=== PATIENT | female | born 1965 | race Caucasian/White ===

== ENCOUNTER 2022-01-10 04:04 | Observation (INO) | payer MEDICARE, MEDICAID ==
[2022-01-10] MEDS ORDERED: Albuterol/Ipratropium 3.0-0.5 MG/3 ML Neb Soln NEB ONE (04:06)
[2022-01-10] MEDS ORDERED: Acetaminophen 325 MG Tab PO ONE (04:08)
[2022-01-10] MEDS ORDERED: Sodium Chloride 0.9% 10 ML Syringe FLUSH PRN (04:18)
[2022-01-10] MEDS ORDERED: Furosemide 40 MG/4 ML VIAL IVPUSH ONE (04:39)
[2022-01-10 04:58] LABS: CHLORIDE,CL 101 mEq/L (98-106); ESTIMATED GFR 58 mL/min (>=60); SODIUM,NA 143 mEq/L (136-145)
[2022-01-10] MEDS ORDERED: Heparin Sodium 5,000 Units/ML Vial IVPUSH ONE (05:02)
[2022-01-10] MEDS ORDERED: Aspirin 81 MG Tab.Chew PO ONE (05:02)
[2022-01-10 05:08] LABS: CORONAVIRUS COVID-19 NAA NEGATIVE (NEGATIVE)
[2022-01-10] MEDS ORDERED: cefTRIAXone 2 GM Vial IVPUSH ONE (05:44)
[2022-01-10] MEDS ORDERED: Heparin Sodium 5,000 Units/ML Vial SUBCUT ONE (05:52)
[2022-01-10] MEDS ORDERED: Docusate Sodium 100 MG Cap PO PRN (06:04)
[2022-01-10] MEDS ORDERED: Non-Formulary Medication 1 Each (Acetaminophen [Tylenol] 325 MG Tablet) PO PRN (06:12)
[2022-01-10] MEDS ORDERED: Acetaminophen 325 MG Tab PO PRN (07:45)
[2022-01-10] MEDS ORDERED: DULOXETINE 30 MG PO SCH (08:00)
[2022-01-10] MEDS ORDERED: Non-Formulary Medication 1 Each (Hydrochlorothiazide [Hydrochlorothiazide] 25 MG Tablet) PO SCH (08:00)
[2022-01-10] MEDS ORDERED: PREGABALIN 100 MG PO SCH (08:00)
[2022-01-10] MEDS ORDERED: Non-Formulary Medication 1 Each (Omeprazole Magnesium [Prilosec Otc] 20 MG Tablet.Dr) PO SCH (08:00)
[2022-01-10] MEDS ORDERED: Apixaban 5 MG Tab PO SCH (08:00)
[2022-01-10] MEDS ORDERED: TOPIRAMATE 50 MG PO SCH (08:00)
[2022-01-10] MEDS ORDERED: Non-Formulary Medication 1 Each (Rivaroxaban [Xarelto] 20 MG Tablet) PO SCH (08:00)
[2022-01-10] MEDS: Pantoprazole 40 MG Tab.CR PO SCH (08:26)
[2022-01-10] MEDS: Hydrochlorothiazide 25 MG Tab PO SCH ×2 (08:26→09:07)
[2022-01-10] MEDS: Pregabalin 100 MG Cap PO SCH ×3 (08:26→19:38)
[2022-01-10] MEDS: Topiramate 100 MG Tab PO SCH ×2 (08:26→19:39)
[2022-01-10] MEDS: DULoxetine 30 MG Cap PO SCH (08:27)
[2022-01-10] MEDS ORDERED: Heparin Sodium/0.45% NaCl 500 ML IV SCH (08:45)
[2022-01-10] MEDS: Heparin Sodium/0.45% NaCl 500 ML IV SCH (09:16)
[2022-01-10] MEDS: Albuterol/Ipratropium 3.0-0.5 MG/3 ML Neb Soln NEB SCH ×2 (12:22→19:40)
[2022-01-10] MEDS ORDERED: Albuterol/Ipratropium 3.0-0.5 MG/3 ML Neb Soln ONE (12:50)
[2022-01-10 15:37] LABS: PTT,PARTIAL THROMBOPLSTIN TIME 50.6 SEC (23.2-32.3)
[2022-01-10] MEDS: Acetaminophen 325 MG Tab PO PRN (19:39)
[2022-01-11] MEDS: Acetaminophen 325 MG Tab PO PRN ×2 (03:29→15:41)
[2022-01-11] MEDS ORDERED: cefTRIAXone 1 GM Vial IVPUSH SCH ×2 (06:00)
[2022-01-11] MEDS: DULoxetine 30 MG Cap PO SCH (08:06)
[2022-01-11] MEDS: Albuterol/Ipratropium 3.0-0.5 MG/3 ML Neb Soln NEB SCH ×2 (08:07→20:21)
[2022-01-11] MEDS: Pregabalin 100 MG Cap PO SCH ×3 (08:07→20:22)
[2022-01-11] MEDS: Topiramate 100 MG Tab PO SCH ×2 (08:07→20:22)
[2022-01-11] MEDS: Pantoprazole 40 MG Tab.CR PO SCH (08:08)
[2022-01-11] MEDS: Hydrochlorothiazide 25 MG Tab PO SCH (08:08)
[2022-01-11] MEDS ORDERED: Benzonatate 100 MG Cap PO PRN (11:08)
[2022-01-11] MEDS: Heparin Sodium/0.45% NaCl 500 ML IV SCH (12:13)
[2022-01-11 21:30] VITALS: BP 128/68; PULSE 90
== END 2022-01-11 21:50 ==
LOC: CC.ED 04:04 → CC.MS 05:50 → UNDOADMOB 06:00
PROVIDERS: ADMIT Nurse Practitioner Family; ATTEND Nurse Practitioner Family
DX: I21.4 Non-ST elevation (NSTEMI) myocardial infarction (principal); J18.9 Pneumonia, unspecified organism; J44.9 Chronic obstructive pulmonary disease, unspecified; R09.02 Hypoxemia; R77.8 Other specified abnormalities of plasma proteins; M19.90 Unspecified osteoarthritis, unspecified site; F41.9 Anxiety disorder, unspecified; F32.A Depression, unspecified; Z79.01 Long term (current) use of anticoagulants; Z88.1 Allergy status to other antibiotic agents; Z88.2 Allergy status to sulfonamides; Z86.711 Personal history of pulmonary embolism; Z79.899 Other long term (current) drug therapy; Z20.822 Contact with and (suspected) exposure to COVID-19
CPT/HCPCS: 0240U; 36415; 71045; 80053; 81001; 83605; 83735; 83880; 84484; 85025; 85379; 85610; 85730; 86140; 93005; 94640; A9270-GY; J0696; J1644; J1940; J7620-GY

== ENCOUNTER 2023-02-19 13:52 | Inpatient (IN) | payer MEDICARE, MEDICAID ==
[2023-02-19 15:05] LABS: BASOPHILS ABSOLUTE AUTO 0.05 10^3/uL (0.00-0.50); BASOPHILS PERCENT AUTO 0.5 % (0-1); EOSINOPHILS ABSOLUTE AUTO 0.16 10^3/uL (0.00-1.50); EOSINOPHILS PERCENT AUTO 1.6 % (0-6); HEMATOCRIT 37.1 % (37.0-47.0); HEMOGLOBIN 11.2 g/dL (12.0-16.0); IMMATURE GRAN ABSOLUTE AUTO 0.01 10^3/uL (0.00-0.49); IMMATURE GRAN PERCENT AUTO 0.1 % (0.0-4.9); LYMPHOCYTES ABSOLUTE AUTO 1.28 10^3/uL (0.60-5.00); LYMPHOCYTES PERCENT AUTO 12.5 % (24-44); MEAN CORPUSCULAR HEMOGLOBIN 23.8 pg (27.0-32.0); MEAN CORPUSCULAR HGB CONC 30.2 g/dL (32.0-36.0); MEAN CORPUSCULAR VOLUME 78.9 fL (83.0-97.0); MONOCYTES ABSOLUTE AUTO 0.82 10^3/uL (0.00-1.50); NEUTROPHILS ABSOLUTE AUTO 7.93 x10^3/uL (1.80-8.00); NEUTROPHILS PERCENT AUTO 77.3 % (41-71); PLATELET COUNT,PLT 277 10^3/uL (150-400); WHITE BLOOD CELL COUNT,WBC 10.3 10^3/uL (4.0-11.0)
[2023-02-19 15:14] LABS: BLOOD UREA NITROGEN,BUN 16 mg/dL (7-18); C-REACTIVE PROTEIN 7.37 mg/dL (<=0.50); CALCIUM 9.1 mg/dL (8.4-10.1); CARBON DIOXIDE,CO2 30 mmol/L (21-32); CHLORIDE,CL 103 mEq/L (98-106); GLUCOSE RANDOM 94 mg/dL (75-99); SODIUM,NA 141 mEq/L (136-145)
[2023-02-19 15:15] LABS: ESTIMATED GFR 65 mL/min (>=60)
[2023-02-19] MEDS ORDERED: Albuterol/Ipratropium 3.0-0.5 MG/3 ML Neb Soln NEB PRN (16:33)
[2023-02-19] MEDS ORDERED: Azithromycin 250 MG Tab PO ONE (16:33)
[2023-02-19] MEDS ORDERED: methylPREDNISolone Sodium Succinate 125 MG/2 ML SDV IVPUSH STA (16:33)
[2023-02-19] MEDS ORDERED: Polyethylene Glycol 3350 Powder 17 GM Packet PO PRN (16:36)
[2023-02-19] MEDS ORDERED: Sodium Chloride 0.9% 10 ML Syringe FLUSH PRN (16:36)
[2023-02-19] MEDS ORDERED: Ondansetron 4 MG/2 ML SDV IV PRN (16:36)
[2023-02-19] MEDS ORDERED: Docusate Sodium 100 MG Cap PO PRN (16:36)
[2023-02-19] MEDS ORDERED: Ondansetron 4 MG Tab.DIS PO PRN (16:36)
[2023-02-19] MEDS: cefTRIAXone 1 GM Vial IVPUSH SCH (17:03)
[2023-02-19] MEDS ORDERED: Cyclobenzaprine 10 MG Tab PO PRN (17:49)
[2023-02-19] MEDS ORDERED: Non-Formulary Medication 1 Each (Lifitegrast [Xiidra] 1 EACH Droperette) EYEBOTH SCH (18:00)
[2023-02-19] MEDS: Albuterol/Ipratropium 3.0-0.5 MG/3 ML Neb Soln NEB SCH (20:04)
[2023-02-19] MEDS: Formoterol/Mometasone 100-5 MCG 8.8 GM Inhaler IH SCH (20:06)
[2023-02-19] MEDS: ClonazePAM 1 MG Tab PO SCH (20:07)
[2023-02-19] MEDS: DULoxetine 30 MG Cap PO SCH (20:07)
[2023-02-19] MEDS: Pregabalin 100 MG Cap PO SCH (20:08)
[2023-02-19] MEDS: Acetaminophen 325 MG Tab PO PRN (21:41)
[2023-02-20] MEDS: Pantoprazole 40 MG Tab.CR PO SCH (06:20)
[2023-02-20 07:22] LABS: BASOPHILS ABSOLUTE AUTO 0.03 10^3/uL (0.00-0.50); BASOPHILS PERCENT AUTO 0.2 % (0-1); HEMATOCRIT 35.3 % (37.0-47.0); HEMOGLOBIN 10.7 g/dL (12.0-16.0); IMMATURE GRAN ABSOLUTE AUTO 0.06 10^3/uL (0.00-0.49); IMMATURE GRAN PERCENT AUTO 0.5 % (0.0-4.9); LYMPHOCYTES ABSOLUTE AUTO 0.71 10^3/uL (0.60-5.00); LYMPHOCYTES PERCENT AUTO 5.7 % (24-44); MEAN CORPUSCULAR HEMOGLOBIN 23.8 pg (27.0-32.0); MEAN CORPUSCULAR HGB CONC 30.3 g/dL (32.0-36.0); MEAN CORPUSCULAR VOLUME 78.6 fL (83.0-97.0); MONOCYTES ABSOLUTE AUTO 0.26 10^3/uL (0.00-1.50); MONOCYTES PERCENT AUTO 2.1 % (0-10); NEUTROPHILS ABSOLUTE AUTO 11.31 x10^3/uL (1.80-8.00); NEUTROPHILS PERCENT AUTO 91.5 % (41-71); PLATELET COUNT,PLT 256 10^3/uL (150-400); RED BLOOD CELL COUNT 4.49 x10^6/uL (4.00-5.50); WHITE BLOOD CELL COUNT,WBC 12.4 10^3/uL (4.0-11.0)
[2023-02-20 07:55] LABS: CALCIUM 8.7 mg/dL (8.4-10.1); EST CRCL DRUG DOSING (CG) 52.31 mL/min; MAGNESIUM 1.7 mg/dL (1.8-2.4); POTASSIUM,K 4.5 mEq/L (3.5-5.0)
[2023-02-20] MEDS ORDERED: buPROPion 150 MG Tab.ER PO SCH (08:00)
[2023-02-20] MEDS ORDERED: [UNRECOGNIZED DRUG - OTHER] PO SCH (08:00)
[2023-02-20] MEDS ORDERED: MODAFINIL 100 MG PO SCH (08:00)
[2023-02-20] MEDS ORDERED: CYANOCOBALAMIN PO SCH (08:00)
[2023-02-20] MEDS ORDERED: Non-Formulary Medication 1 Each (Bupropion Hcl [Bupropion Xl] 300 MG Tab.Er.24h) PO SCH (08:00)
[2023-02-20] MEDS ORDERED: VIT B6 PO SCH (08:00)
[2023-02-20] MEDS ORDERED: FOLIC AC PO SCH (08:00)
[2023-02-20] MEDS: Albuterol/Ipratropium 3.0-0.5 MG/3 ML Neb Soln NEB SCH ×3 (08:08→19:38)
[2023-02-20] MEDS: Celecoxib 100 MG Cap PO SCH (08:10)
[2023-02-20] MEDS: DULoxetine 30 MG Cap PO SCH ×2 (08:10→19:37)
[2023-02-20] MEDS: ARIPiprazole 10 MG Tab PO SCH (08:10)
[2023-02-20] MEDS: ClonazePAM 1 MG Tab PO SCH ×3 (08:11→19:37)
[2023-02-20] MEDS: atorvaSTATin 20 MG Tab PO SCH (08:12)
[2023-02-20] MEDS: methylPREDNISolone Sodium Succinate 40 MG/1 ML SDV IVPUSH SCH ×2 (08:14→19:39)
[2023-02-20] MEDS: Pregabalin 100 MG Cap PO SCH ×2 (08:16→09:27)
[2023-02-20] MEDS: Formoterol/Mometasone 100-5 MCG 8.8 GM Inhaler IH SCH ×2 (08:20→19:50)
[2023-02-20] MEDS: metFORMIN 500 MG Tab PO SCH ×2 (08:41→17:06)
[2023-02-20] MEDS: buPROPion 150 MG Tab.ER PO SCH (09:30)
[2023-02-20] MEDS: Acetaminophen 325 MG Tab PO PRN ×2 (11:50→19:38)
[2023-02-20] MEDS ORDERED: Azithromycin 250 MG Tab PO SCH (12:00)
[2023-02-20] MEDS: cefTRIAXone 1 GM Vial IVPUSH SCH (17:07)
[2023-02-20] MEDS ORDERED: Rivaroxaban 10 MG Tab PO SCH (17:30)
[2023-02-21] MEDS: Acetaminophen 325 MG Tab PO PRN (03:43)
[2023-02-21] MEDS: Pantoprazole 40 MG Tab.CR PO SCH (06:27)
[2023-02-21] MEDS: Albuterol/Ipratropium 3.0-0.5 MG/3 ML Neb Soln NEB SCH (07:36)
[2023-02-21] MEDS: ClonazePAM 1 MG Tab PO SCH (07:37)
[2023-02-21] MEDS: methylPREDNISolone Sodium Succinate 40 MG/1 ML SDV IVPUSH SCH (07:37)
[2023-02-21] MEDS: metFORMIN 500 MG Tab PO SCH (07:39)
[2023-02-21] MEDS: DULoxetine 30 MG Cap PO SCH (07:40)
[2023-02-21] MEDS: buPROPion 150 MG Tab.ER PO SCH (07:42)
[2023-02-21] MEDS: Celecoxib 100 MG Cap PO SCH (07:43)
[2023-02-21] MEDS: ARIPiprazole 10 MG Tab PO SCH (07:43)
[2023-02-21] MEDS: atorvaSTATin 20 MG Tab PO SCH (07:45)
[2023-02-21] MEDS: Pregabalin 100 MG Cap PO SCH (07:46)
[2023-02-21 07:48] LABS: BASOPHILS ABSOLUTE AUTO 0.02 10^3/uL (0.00-0.50); BASOPHILS PERCENT AUTO 0.1 % (0-1); EST CRCL DRUG DOSING (CG) 52.31 mL/min; HEMOGLOBIN 10.3 g/dL (12.0-16.0); IMMATURE GRAN ABSOLUTE AUTO 0.19 10^3/uL (0.00-0.49); IMMATURE GRAN PERCENT AUTO 1.1 % (0.0-4.9); LYMPHOCYTES ABSOLUTE AUTO 1.33 10^3/uL (0.60-5.00); LYMPHOCYTES PERCENT AUTO 7.4 % (24-44); MAGNESIUM 1.5 mg/dL (1.8-2.4); MEAN CORPUSCULAR HEMOGLOBIN 23.8 pg (27.0-32.0); MEAN CORPUSCULAR HGB CONC 30.3 g/dL (32.0-36.0); MEAN CORPUSCULAR VOLUME 78.5 fL (83.0-97.0); MONOCYTES ABSOLUTE AUTO 0.82 10^3/uL (0.00-1.50); MONOCYTES PERCENT AUTO 4.6 % (0-10); NEUTROPHILS ABSOLUTE AUTO 15.56 x10^3/uL (1.80-8.00); NEUTROPHILS PERCENT AUTO 86.8 % (41-71); PLATELET COUNT,PLT 307 10^3/uL (150-400); POTASSIUM,K 4.3 mEq/L (3.5-5.0); RED BLOOD CELL COUNT 4.33 x10^6/uL (4.00-5.50); WHITE BLOOD CELL COUNT,WBC 17.9 10^3/uL (4.0-11.0)
[2023-02-21] MEDS: Formoterol/Mometasone 100-5 MCG 8.8 GM Inhaler IH SCH (07:50)
[2023-02-21 11:00] VITALS: BP 132/90; PULSE 91
== END 2023-02-21 10:50 | disposition home or self-care (01) | DRG 192 ==
LOC: CC.FCMC 13:52 → CC.MS 13:52 → UNDOADMIN 16:11 → CC.MS 16:11
PROVIDERS: ADMIT Nurse Practitioner; ATTEND Nurse Practitioner
DX: J44.1 Chronic obstructive pulmonary disease with (acute) exacerbation (principal); R09.02 Hypoxemia; G89.29 Other chronic pain; M54.9 Dorsalgia, unspecified; F41.9 Anxiety disorder, unspecified; M19.90 Unspecified osteoarthritis, unspecified site; F32.A Depression, unspecified; K21.9 Gastro-esophageal reflux disease without esophagitis; Z88.8 Allergy status to other drugs, medicaments and biological substances; Z86.718 Personal history of other venous thrombosis and embolism; Z88.0 Allergy status to penicillin; Z88.2 Allergy status to sulfonamides; Z86.711 Personal history of pulmonary embolism; Z87.440 Personal history of urinary (tract) infections; Z90.49 Acquired absence of other specified parts of digestive tract; Z98.890 Other specified postprocedural states; Z11.52 Encounter for screening for COVID-19
CPT/HCPCS: 36415; 71046; 80048; 83735; 83880; 84484; 85025; 86140; 87070; 87205; 87804; 87807; 93005; 94640; A9270-GY; J0696; J2920; J2930; J7620-GY; U0002

== ENCOUNTER 2023-12-08 15:16 | Inpatient (IN) | payer MEDICARE, MEDICAID ==
[2023-12-08] MEDS: Albuterol/Ipratropium 3.0-0.5 MG/3 ML Neb Soln NEB STA (15:25)
[2023-12-08 15:28] LABS: BASOPHILS ABSOLUTE AUTO 0.12 10^3/uL (0.00-0.50); BASOPHILS PERCENT AUTO 0.9 % (0-1); EOSINOPHILS ABSOLUTE AUTO 0.05 10^3/uL (0.00-1.50); EOSINOPHILS PERCENT AUTO 0.4 % (0-6); HEMATOCRIT 34.6 % (37.0-47.0); HEMOGLOBIN 9.4 g/dL (12.0-16.0); IMMATURE GRAN ABSOLUTE AUTO 0.04 10^3/uL (0.00-0.49); IMMATURE GRAN PERCENT AUTO 0.3 % (0.0-4.9); LYMPHOCYTES PERCENT AUTO 10.3 % (24-44); MEAN CORPUSCULAR HEMOGLOBIN 17.5 pg (27.0-32.0); MEAN CORPUSCULAR HGB CONC 27.2 g/dL (32.0-36.0); MEAN CORPUSCULAR VOLUME 64.6 fL (83.0-97.0); MONOCYTES ABSOLUTE AUTO 1.94 10^3/uL (0.00-1.50); MONOCYTES PERCENT AUTO 14.3 % (0-10); NEUTROPHILS ABSOLUTE AUTO 10.01 x10^3/uL (1.80-8.00); NEUTROPHILS PERCENT AUTO 73.8 % (41-71); PLATELET COUNT,PLT 293 10^3/uL (150-400); RED BLOOD CELL COUNT 5.36 x10^6/uL (4.00-5.50); WHITE BLOOD CELL COUNT,WBC 13.6 10^3/uL (4.0-11.0)
[2023-12-08 15:45] LABS: ALBUMIN 3.5 g/dL (3.4-5.0); BILIRUBIN TOTAL 0.5 mg/dL (0.0-1.0); C-REACTIVE PROTEIN 6.25 mg/dL (<=0.50); CREATININE 1.1 mg/dL (0.6-1.0); EST CRCL DRUG DOSING (CG) 46.96 mL/min; POTASSIUM,K 4.6 mEq/L (3.5-5.0); PROTEIN TOTAL,TP 7.3 g/dL (6.4-8.2)
[2023-12-08 16:00] LABS: O2 DELIVERY DEVICE NASAL CANNULA; PCO2 ARTERIAL 46 mm/Hg0 (35-45); PH,ARTERIAL 7.38 (7.35-7.45)
[2023-12-08 16:01] LABS: BASE EXCESS ARTERIAL 2.4 (-2.0-3.0); BICARBONATE,ARTERIAL 27.5 mm/L (22.0-26.0); O2 SATURATION ARTERIAL 88 % (95-98); PO2 ARTERIAL 56 mm/Hg (80-100)
[2023-12-08 16:05] LABS: LACTIC ACID 1.3 mmol/L (0.4-2.0)
[2023-12-08 16:18] LABS: CORONAVIRUS COVID-19 NAA NEGATIVE (NEGATIVE); INFLUENZA A NAA NEGATIVE (NEGATIVE); INFLUENZA B NAA NEGATIVE (NEGATIVE)
[2023-12-08] MEDS: methylPREDNISolone Sodium Succinate 125 MG/2 ML SDV IVPUSH STA (16:36)
[2023-12-08] MEDS ORDERED: Cyclobenzaprine 10 MG Tab PO PRN (16:42)
[2023-12-08] MEDS ORDERED: Ondansetron 4 MG/2 ML SDV IV PRN (17:04)
[2023-12-08] MEDS ORDERED: Albuterol 0.083% 2.5 MG/3 ML Neb Soln NEB PRN (17:04)
[2023-12-08] MEDS ORDERED: Acetaminophen 325 MG Tab PO PRN (17:04)
[2023-12-08] MEDS ORDERED: Ondansetron 4 MG Tab.DIS PO PRN (17:04)
[2023-12-08] MEDS ORDERED: Docusate Sodium 100 MG Cap PO PRN (17:04)
[2023-12-08] MEDS ORDERED: Sodium Chloride 0.9% 10 ML Syringe FLUSH PRN (17:04)
[2023-12-08] MEDS: Sodium Chloride 0.9% 1,000 ML IV SCH (17:30)
[2023-12-08] MEDS: Levofloxacin/Dextrose 5%-Water 750 MG in Premix Bag 1 BAG IV SCH (17:30)
[2023-12-08] MEDS: Rivaroxaban 10 MG Tab PO SCH (19:43)
[2023-12-08] MEDS: DULoxetine 30 MG Cap PO SCH (19:43)
[2023-12-08] MEDS: ClonazePAM 0.5 MG Tab PO SCH (19:44)
[2023-12-08] MEDS: Albuterol/Ipratropium 3.0-0.5 MG/3 ML Neb Soln NEB SCH (19:44)
[2023-12-09 07:22] LABS: BASOPHILS ABSOLUTE AUTO 0.03 10^3/uL (0.00-0.50); BASOPHILS PERCENT AUTO 0.3 % (0-1); HEMATOCRIT 31.4 % (37.0-47.0); HEMOGLOBIN 8.5 g/dL (12.0-16.0); IMMATURE GRAN ABSOLUTE AUTO 0.07 10^3/uL (0.00-0.49); IMMATURE GRAN PERCENT AUTO 0.7 % (0.0-4.9); LYMPHOCYTES ABSOLUTE AUTO 0.77 10^3/uL (0.60-5.00); LYMPHOCYTES PERCENT AUTO 7.9 % (24-44); MEAN CORPUSCULAR HEMOGLOBIN 17.7 pg (27.0-32.0); MEAN CORPUSCULAR HGB CONC 27.1 g/dL (32.0-36.0); MEAN CORPUSCULAR VOLUME 65.3 fL (83.0-97.0); MONOCYTES ABSOLUTE AUTO 0.74 10^3/uL (0.00-1.50); MONOCYTES PERCENT AUTO 7.6 % (0-10); NEUTROPHILS ABSOLUTE AUTO 8.18 x10^3/uL (1.80-8.00); NEUTROPHILS PERCENT AUTO 83.5 % (41-71); PLATELET COUNT,PLT 296 10^3/uL (150-400); RED BLOOD CELL COUNT 4.81 x10^6/uL (4.00-5.50); WHITE BLOOD CELL COUNT,WBC 9.8 10^3/uL (4.0-11.0)
[2023-12-09 07:36] LABS: BILIRUBIN TOTAL 0.3 mg/dL (0.0-1.0); C-REACTIVE PROTEIN 7.46 mg/dL (<=0.50); CALCIUM 8.6 mg/dL (8.4-10.1); EST CRCL DRUG DOSING (CG) 51.66 mL/min; POTASSIUM,K 4.6 mEq/L (3.5-5.0); PROTEIN TOTAL,TP 6.6 g/dL (6.4-8.2)
[2023-12-09] MEDS ORDERED: Fluticasone/Umeclidin/Vilanter [Trelegy Ellipta] 100-62.5-25 INH SCH (08:00)
[2023-12-09] MEDS ORDERED: MODAFINIL 100 MG PO SCH (08:00)
[2023-12-09] MEDS ORDERED: SITAGLIPTIN PO SCH (08:00)
[2023-12-09] MEDS ORDERED: METFORMIN PO SCH (08:00)
[2023-12-09] MEDS: Saxagliptin 2.5 MG Tab PO SCH (08:08)
[2023-12-09] MEDS: Pregabalin 100 MG Cap PO SCH (08:08)
[2023-12-09] MEDS: metFORMIN 500 MG Tab PO SCH (08:09)
[2023-12-09] MEDS: atorvaSTATin 20 MG Tab PO SCH (08:09)
[2023-12-09] MEDS: buPROPion 150 MG Tab.ER PO SCH (08:09)
[2023-12-09] MEDS: methylPREDNISolone Sodium Succinate 125 MG/2 ML SDV IVPUSH SCH (08:09)
[2023-12-09] MEDS: Pantoprazole 40 MG Tab.CR PO SCH (08:09)
[2023-12-09] MEDS: DULoxetine 30 MG Cap PO ONE (12:23)
[2023-12-09] MEDS: Tiotropium Bromide 4 GM Inhalation Spray (2.5mcg/1 dose; 10 doses) INH SCH (12:30)
[2023-12-09] MEDS: Hypromellose 0.3% Ophth Soln 15 ML Bottle EYEBOTH SCH (19:19)
[2023-12-09] MEDS: Formoterol/Mometasone 100-5 MCG 8.8 GM Inhaler INH SCH (19:44)
[2023-12-10] MEDS: DULoxetine 30 MG Cap PO SCH (07:31)
[2023-12-10] MEDS: Pregabalin 100 MG Cap PO SCH (07:32)
[2023-12-10] MEDS: Pregabalin 50 MG Cap PO SCH (07:33)
[2023-12-10] MEDS: Rivaroxaban 10 MG Tab PO SCH (07:33)
[2023-12-10 07:52] LABS: BILIRUBIN TOTAL 0.3 mg/dL (0.0-1.0); C-REACTIVE PROTEIN 3.57 mg/dL (<=0.50); CALCIUM 8.6 mg/dL (8.4-10.1); EST CRCL DRUG DOSING (CG) 51.66 mL/min; POTASSIUM,K 4.8 mEq/L (3.5-5.0); PROTEIN TOTAL,TP 6.3 g/dL (6.4-8.2)
[2023-12-10 08:06] LABS: BASOPHILS ABSOLUTE AUTO 0.02 10^3/uL (0.00-0.50); BASOPHILS PERCENT AUTO 0.1 % (0-1); HEMOGLOBIN 8.1 g/dL (12.0-16.0); IMMATURE GRAN ABSOLUTE AUTO 0.07 10^3/uL (0.00-0.49); IMMATURE GRAN PERCENT AUTO 0.5 % (0.0-4.9); LYMPHOCYTES ABSOLUTE AUTO 0.86 10^3/uL (0.60-5.00); LYMPHOCYTES PERCENT AUTO 5.7 % (24-44); MEAN CORPUSCULAR HEMOGLOBIN 17.7 pg (27.0-32.0); MEAN CORPUSCULAR VOLUME 65.5 fL (83.0-97.0); MONOCYTES ABSOLUTE AUTO 0.77 10^3/uL (0.00-1.50); MONOCYTES PERCENT AUTO 5.1 % (0-10); NEUTROPHILS ABSOLUTE AUTO 13.41 x10^3/uL (1.80-8.00); NEUTROPHILS PERCENT AUTO 88.6 % (41-71); PLATELET COUNT,PLT 294 10^3/uL (150-400); RED BLOOD CELL COUNT 4.58 x10^6/uL (4.00-5.50); WHITE BLOOD CELL COUNT,WBC 15.1 10^3/uL (4.0-11.0)
[2023-12-11 07:31] LABS: BASOPHILS ABSOLUTE AUTO 0.01 10^3/uL (0.00-0.50); BASOPHILS PERCENT AUTO 0.1 % (0-1); EOSINOPHILS ABSOLUTE AUTO 0.01 10^3/uL (0.00-1.50); EOSINOPHILS PERCENT AUTO 0.1 % (0-6); HEMOGLOBIN 8.3 g/dL (12.0-16.0); IMMATURE GRAN ABSOLUTE AUTO 0.07 10^3/uL (0.00-0.49); IMMATURE GRAN PERCENT AUTO 0.4 % (0.0-4.9); LYMPHOCYTES ABSOLUTE AUTO 1.17 10^3/uL (0.60-5.00); LYMPHOCYTES PERCENT AUTO 7.3 % (24-44); MEAN CORPUSCULAR HEMOGLOBIN 17.6 pg (27.0-32.0); MEAN CORPUSCULAR HGB CONC 27.7 g/dL (32.0-36.0); MEAN CORPUSCULAR VOLUME 63.7 fL (83.0-97.0); NEUTROPHILS PERCENT AUTO 87.1 % (41-71); PLATELET COUNT,PLT 307 10^3/uL (150-400); RED BLOOD CELL COUNT 4.71 x10^6/uL (4.00-5.50)
[2023-12-11 07:32] LABS: ALBUMIN 3.1 g/dL (3.4-5.0); BILIRUBIN TOTAL 0.3 mg/dL (0.0-1.0); C-REACTIVE PROTEIN 1.8 mg/dL (<=0.50); CALCIUM 8.9 mg/dL (8.4-10.1); EST CRCL DRUG DOSING (CG) 51.66 mL/min; POTASSIUM,K 4.7 mEq/L (3.5-5.0); PROTEIN TOTAL,TP 6.5 g/dL (6.4-8.2)
[2023-12-11] MEDS: Levofloxacin/Dextrose 5%-Water 750 MG in Premix Bag 1 BAG IV SCH (11:47)
[2023-12-11 12:05] VITALS: BP 148/85; PULSE 93
== END 2023-12-11 14:15 | disposition home or self-care (01) | DRG 192 ==
LOC: CC.ED 15:16 → CC.MS 16:33 → UNDOADMIN 16:33 → CC.MS 16:35
PROVIDERS: ADMIT Nurse Practitioner Family; ATTEND Nurse Practitioner Family
DX: J44.1 Chronic obstructive pulmonary disease with (acute) exacerbation (principal); F41.9 Anxiety disorder, unspecified; F32.A Depression, unspecified; M19.90 Unspecified osteoarthritis, unspecified site; K21.9 Gastro-esophageal reflux disease without esophagitis; I11.0 Hypertensive heart disease with heart failure; I50.9 Heart failure, unspecified; R06.03 Acute respiratory distress; G89.29 Other chronic pain; M54.9 Dorsalgia, unspecified; Z88.0 Allergy status to penicillin; Z88.2 Allergy status to sulfonamides; Z88.1 Allergy status to other antibiotic agents; Z79.01 Long term (current) use of anticoagulants; Z86.711 Personal history of pulmonary embolism; Z88.8 Allergy status to other drugs, medicaments and biological substances; Z79.899 Other long term (current) drug therapy
CPT/HCPCS: 0240U; 36415; 36600; 71045; 80053; 82803; 83036; 83605; 83880; 84484; 85025; 86140; 87040; 93005; 93010; 94640; 97110-GP; 97161-GP; 99285; A9270-GY; J1956; J2919; J7030; J7620-GY